=== PATIENT | male | born 1965 | race Caucasian/White ===

== ENCOUNTER 2016-04-26 04:19 | Observation (INO) | payer OTHER ==
[~2016-04-26] VITALS: Ht 185.4 cm; Wt 96.0 kg
[~2016-04-26 04:19] MED LIST: ASPIR-LOW81 MG PO; LIPITOR40 MG PO; NIASPAN,SLO-NI500 MG PO; NICOTINE PATCH1 EAC2 TD; TRILIPIX135 MG PO; XANAX0.5 MG PO
[2016-04-26 04:55] LABS: MCH 29.7 PG (29.0-34.0); MCHC 33.6 G/DL (30.0-36.0); MCV 88.4 FL (86-99); PLATELET COUNT 201 K/uL (156-360); RBC DIS.WIDTH-CV 12.6 % (11.8-14.6); RBC DIS.WIDTH-SD 41.5 % (39-53); RED BLOOD COUNT 5.09 M/uL (4.00-5.50); WHITE BLOOD COUNT 7.3 K/uL (4.1-10.2)
[2016-04-26 05:06] LABS: CHLORIDE 106 mEq/L (99-109); POTASSIUM 3.8 mEq/L (3.7-5.4); SODIUM 138 mEq/L (136-147)
[2016-04-26 05:07] LABS: GLUCOSE 101 mg/dL (70-99)
[2016-04-26 05:09] LABS: ANION GAP 11 MEQ/L (2-14)
[2016-04-26 05:11] LABS: GFR ESTIMATE (CALCULATED) > 59 mL/min/
[2016-04-26 05:12] LABS: UREA NITROGEN (BUN) 17 mg/dL (9-23)
[2016-04-26 05:19] LABS: TROP-I INTERPRETATION NEGATIVE; TROPONIN-I < 0.01 ng/mL (0.0-0.30)
[2016-04-26 06:52] LABS: INFLUENZA A VIRAL ANTIGEN NEGATIVE; INFLUENZA B VIRAL ANTIGEN NEGATIVE
[2016-04-26 08:36] VITALS: BP 143/84
[2016-04-26 12:27] VITALS: BP 168/72
[2016-04-26] MEDS ORDERED: TRILIPIX135 MG PO (13:08)
[2016-04-26 13:18] LABS: TROP-I INTERPRETATION NEGATIVE; TROPONIN-I < 0.01 ng/mL (0.0-0.30)
[2016-04-26 16:33] VITALS: BP 136/79
[2016-04-26 19:32] LABS: TROP-I INTERPRETATION NEGATIVE; TROPONIN-I < 0.01 ng/mL (0.0-0.30)
== END 2016-04-26 19:50 | disposition home or self-care (01) ==
LOC: EME 04:19 → 5WEST 07:53 → EDOF 07:53 → 5WEST 08:22
PROVIDERS: Emergency Medicine; Internal Medicine
DX: R07.89 Other chest pain (principal); R06.02 Shortness of breath; R05 Cough; E78.1 Pure hyperglyceridemia; F17.210 Nicotine dependence, cigarettes, uncomplicated
CPT/HCPCS: 71010; 80048; 84484; 85027; 87502; 93005; 99281; 99284; G0378